=== PATIENT | male | born 1960 | race Two or more races ===

== ENCOUNTER 2021-05-31 12:42 | Emergency (ER) | payer OTHER ==
[~2021-05-31] VITALS: Ht 177.8 cm; Wt 113.4 kg
[2021-05-31] MEDS ORDERED: ADDERALL XR 3030 M1 PO (13:18)
[2021-05-31] MEDS ORDERED: PROZAC40 MG PO (13:19)
[2021-05-31] MEDS ORDERED: HYZAAR 50-12.51 EACH PO (13:19)
[2021-05-31] MEDS ORDERED: WELLBUTRIN XL300 MG PO (13:20)
[2021-05-31] MEDS ORDERED: TAMS0.4C PO (13:20)
[2021-05-31] MEDS ORDERED: PEPCID AC20 MG PO (13:24)
[2021-05-31] MEDS ORDERED: PROTONIX20 MG PO (13:25)
[2021-05-31] MEDS ORDERED: ORPHENADRINE C100 MG PO (16:37)
[2021-05-31] MEDS ORDERED: KETO10TA2 PO (16:37)
== END 2021-05-31 17:07 | disposition home or self-care (01) ==
LOC: ER 12:42
DX: S33.5XXA Sprain of ligaments of lumbar spine, initial encounter (principal); X50.0XXA Overexertion from strenuous movement or load, initial encounter; Y93.89 Activity, other specified; Y92.89 Other specified places as the place of occurrence of the external cause; Y99.8 Other external cause status; Z11.52 Encounter for screening for COVID-19